=== PATIENT | female | born 1990 | race Asian ===

== ENCOUNTER 2017-07-25 10:37 | Inpatient (IN) | payer OTHER ==
[~2017-07-25] VITALS: Ht 170.2 cm; Wt 56.2 kg
[~2017-07-25 10:37] MED LIST: ZOFR4TAB3 SL
[2017-07-25 11:32] VITALS: BP 116/72; PULSE 91; RESP 16; TEMP 97.7; O2SAT 95
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
[2017-07-25] MEDS ORDERED: SODIUM CHLOR 0.9% 1000 ML INJ 1,000 ML IV SCH ×2 (14:11→18:45)
[2017-07-25] MEDS ORDERED: IBUPROFEN 600 MG TAB PO ONE (14:15)
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
[2017-07-25 14:32] VITALS: RESP 18; O2SAT 100
[2017-07-25 14:33] VITALS: BP 118/73; PULSE 83; RESP 18; O2SAT 100
[2017-07-25 14:48] LABS: AUTOMATED NEUTROPHIL # 8.2 TH/MM3 (1.8-7.7); BASOPHIL % 0.3 % (0.0-2.0); EOSINOPHIL # 0.1 TH/MM3 (0-0.4); EOSINOPHIL % 0.7 % (0.0-4.0); HEMATOCRIT 40.1 % (35.0-46.0); HEMO FLAGS DIFF FINAL; LYMPH % 13.6 % (9.0-44.0); LYMPHOCYTE # 1.4 TH/MM3 (1.0-4.8); MEAN CELL VOLUME 87.1 FL (80.0-100.0); MEAN CORPUSCULAR HEMOGLOBIN 29.1 PG (27.0-34.0); MEAN CORPUSCULAR HGB CONC 33.4 % (32.0-36.0); MONO % 4.2 % (0.0-8.0); NEUT % 81.2 % (16.0-70.0); PLATELET COUNT 224 TH/MM3 (150-450); WHITE BLOOD COUNT 10.1 TH/MM3 (4.0-11.0)
[2017-07-25 15:07] LABS: APTT (PATIENT) 27.1 SEC (24.3-30.1); PROTHROMBIN TIME - PATIENT 11.3 SEC (9.8-11.6)
[2017-07-25 15:17] LABS: BICARBONATE 28.8 MEQ/L (21.0-32.0); POTASSIUM 3.8 MEQ/L (3.5-5.1)
[2017-07-25] MEDS ORDERED: IOHEXOL 350 MG/ML 10 ML VIAL (for RAD DIAG) IVCONTRAST ONE (16:32)
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
[2017-07-25 18:45] VITALS: BP 108/58; PULSE 56; RESP 16; O2SAT 99
[2017-07-25] MEDS ORDERED: SODIUM CHLORIDE 0.9% FLUSH 10 ML FLUSH IV FLUSH PRN (18:45)
[2017-07-25] MEDS ORDERED: LACTULOSE SYRUP 20 GM/30 ML CUP PO PRN (18:45)
[2017-07-25] MEDS ORDERED: ACETAMINOPHEN/HYDROcodone 325 MG/5 MG TAB PO PRN ×2 (18:45)
[2017-07-25] MEDS ORDERED: ENALAPRILAT 1.25 MG/ML VIAL IV PUSH PRN (18:45)
[2017-07-25] MEDS ORDERED: ONDANSETRON HCL 4 MG/2 ML VIAL IV PUSH PRN ×2 (18:45→19:00)
[2017-07-25] MEDS ORDERED: MORPHINE SULFATE 4 MG/ML INJ IV PUSH PRN (18:45)
[2017-07-25] MEDS ORDERED: KETOROLAC TROMETHAMINE 30 MG/ML (IVP) VIAL IVP PRN (19:00)
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
--- NOTE | 2017-07-25 20:23 | RADRPT ---
EXAM DATE/TIME: 07/25/2017 19:58 [facility] COMPARISON: CT THORAX W CONTRAST, July 25, 2017, 16:24. CHEST SINGLE AP, July 25, 2017, 13:23. INDICATIONS : Follow-up pneumothorax. MEDICAL HISTORY : None. SURGICAL HISTORY : None. ENCOUNTER: Subsequent ACUITY: 1 day PAIN SCORE: 10/10 LOCATION: Bilateral chest FINDINGS: A single view of the chest demonstrates the lungs to be symmetrically aerated without evidence of mas s, infiltrate or effusion. The cardiomediastinal contours are unremarkable. Osseous structures agai n reveal a left mid clavicle displaced fracture.. 3.6 cm left apical pneumothorax is appreciated with out tension CONCLUSION: Stable chest. Left clavicle fracture. Stable left apical pneumothorax without tension Turner Bocanegra MD on July 25, 2017 at 20:19 Board Certified Radiologist. This report was verified electronically.
[2017-07-25] MEDS: ACETAMINOPHEN 1000 MG/100 ML 100 ML IV SCH (23:50)
[2017-07-25] MEDS: SODIUM CHLOR 0.9% 1000 ML INJ 1,000 ML IV SCH (23:54)
[2017-07-25] MEDS: DOCUSATE SODIUM 50 MG/SENNA 8.6 MG TAB PO SCH (23:54)
[2017-07-25] MEDS: FAMOTIDINE 20 MG TAB PO SCH (23:54)
[2017-07-25] MEDS: METHOCARBAMOL 500 MG TAB PO SCH (23:55)
[2017-07-26] VITALS (11 sets, daily range): BP systolic 95–123; BP diastolic 50–72; PULSE 61–86; RESP 16–25; TEMP 96.6–98.8; O2SAT 97–99
[2017-07-26] MEDS: ACETAMINOPHEN 1000 MG/100 ML 100 ML IV SCH ×3 (02:00→12:52)
[2017-07-26] MEDS: SODIUM CHLOR 0.9% 1000 ML INJ 1,000 ML IV SCH ×2 (06:00→15:43)
[2017-07-26] MEDS: METHOCARBAMOL 500 MG TAB PO SCH ×3 (06:01→21:20)
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
--- NOTE | 2017-07-26 06:48 | RADRPT ---
EXAM DATE/TIME: 07/26/2017 06:13 [facility] COMPARISON: CHEST SINGLE AP, July 25, 2017, 19:58. INDICATIONS : Follow-up pneumothorax. MEDICAL HISTORY : None. SURGICAL HISTORY : None. ENCOUNTER: Subsequent ACUITY: 2 days PAIN SCORE: 10/10 LOCATION: Bilateral chest FINDINGS: The cardiac silhouette is normal in transverse diameter. The left pneumothorax is increasing in size from 3.6 separation at the apex to 4.2 There are no signs of tension. Left clavicle fracture is prese nt. CONCLUSION: 1. Enlarging left pneumothorax without tension Haider Kebede MD on July 26, 2017 at 6:45 Board Certified Radiologist. This report was verified electronically.
[2017-07-26] MEDS: DOCUSATE SODIUM 50 MG/SENNA 8.6 MG TAB PO SCH ×2 (07:49→21:00)
[2017-07-26] MEDS: FAMOTIDINE 20 MG TAB PO SCH ×2 (07:49→21:18)
[2017-07-26] MEDS: BACITRACIN TOP OINT 15 GM TUBE TOP SCH ×2 (08:08→21:20)
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
[2017-07-26] MEDS ORDERED: MILKSUS PO (19:57)
[2017-07-26] MEDS ORDERED: SENN1TAB PO (19:57)
[2017-07-26] MEDS ORDERED: INSULIN HUMAN REGULAR 1,000 UNITS/10 ML VIAL SQ PRN (22:30)
[2017-07-26] MEDS ORDERED: SODIUM CHLORID 0.9% 500 ML IV PRN (22:30)
[2017-07-26] MEDS ORDERED: CHLORHEXIDINE GLUCONATE 2 % 1 PACK (2 CLOTHS) TOPICAL PRN (22:30)
[2017-07-26] MEDS ORDERED: POVIDONE IODINE 5% (ANTISEPSIS KIT) 4 APPLICATIONS EACH NARE PRN (22:30)
[2017-07-26] MEDS ORDERED: LACTATED RINGER'S 1000 ML IV PRN (22:30)
[2017-07-26] MEDS ORDERED: METOPROLOL TARTRATE 25 MG TAB PO PRN (22:30)
[2017-07-27 00:40] VITALS: BP 125/69; PULSE 70; RESP 16; TEMP 98; O2SAT 98
[2017-07-27 04:45] VITALS: BP 106/65; PULSE 66; RESP 16; TEMP 96.8; O2SAT 98
[2017-07-27 05:50] LABS: AUTOMATED NEUTROPHIL # 2.4 TH/MM3 (1.8-7.7); BASOPHIL % 0.8 % (0.0-2.0); EOSINOPHIL # 0.3 TH/MM3 (0-0.4); EOSINOPHIL % 6.8 % (0.0-4.0); HEMATOCRIT 34.8 % (35.0-46.0); HEMO FLAGS DIFF FINAL; LYMPH % 36.5 % (9.0-44.0); LYMPHOCYTE # 1.8 TH/MM3 (1.0-4.8); MEAN CELL VOLUME 86.5 FL (80.0-100.0); MEAN CORPUSCULAR HEMOGLOBIN 29.1 PG (27.0-34.0); MEAN CORPUSCULAR HGB CONC 33.6 % (32.0-36.0); MONO % 6.3 % (0.0-8.0); NEUT % 49.6 % (16.0-70.0); PLATELET COUNT 202 TH/MM3 (150-450); RED BLOOD COUNT 4.03 MIL/MM3 (4.00-5.30); WHITE BLOOD COUNT 4.9 TH/MM3 (4.0-11.0)
[2017-07-27 06:14] LABS: ALT (GPT) 17 U/L (10-53); ANION GAP 6 MEQ/L (5-15); AST (GOT) 18 U/L (15-37); BICARBONATE 27.4 MEQ/L (21.0-32.0); BLOOD UREA NITROGEN 7 MG/DL (7-18); CHLORIDE 108 MEQ/L (98-107); GLOMERULAR FILTRATION RATE 110 ML/MIN (>89); POTASSIUM 3.8 MEQ/L (3.5-5.1); SODIUM (NA) 141 MEQ/L (136-145)
[2017-07-27 06:16] LABS: ALKALINE PHOSPHATASE 67 U/L (45-117); TOTAL BILIRUBIN ADULT 0.3 MG/DL (0.2-1.0)
[2017-07-27] MEDS: METHOCARBAMOL 500 MG TAB PO SCH ×3 (06:20→23:28)
[2017-07-27 08:00] VITALS: BP 98/56; PULSE 59; RESP 19; TEMP 97; O2SAT 94
--- NOTE | 2017-07-27 08:12 | RADRPT ---
EXAM DATE/TIME: 07/27/2017 08:43 [facility] COMPARISON: CHEST PA & LAT, July 26, 2017, 6:13. CHEST SINGLE AP, July 25, 2017, 19:58. INDICATIONS : Rule out pneumothorax. MEDICAL HISTORY : None. SURGICAL HISTORY : None. ENCOUNTER: Subsequent ACUITY: 2 days PAIN SCORE: 0/10 LOCATION: Bilateral chest FINDINGS: A single view of the chest demonstrates persistent left apical pneumothorax. This actually appears sm aller when compared to prior exams previously measuring 3.6-4.0 cm in depth now measuring 2.7 cm. No findings of tension. Heart and mediastinal structures remain midline and normal in size. Right lung i s clear. Fracture through the mid diaphysis of the left clavicle with the fracture fragments in bayon et apposition. Osseous structures are otherwise intact. Mild dextroscoliosis of the dorsal spine. CONCLUSION: 1. Persistent left apical pneumothorax is actually smaller when compared to prior. No pneumothorax. 2. Stable left clavicular fracture as above. Dimas Klein MD on July 27, 2017 at 8:07 Board Certified Radiologist. This report was verified electronically.
[2017-07-27] MEDS: DOCUSATE SODIUM 50 MG/SENNA 8.6 MG TAB PO SCH ×2 (09:00→21:00)
[2017-07-27] MEDS: LACTULOSE SYRUP 20 GM/30 ML CUP PO SCH (09:00)
[2017-07-27] MEDS ORDERED: INFLUENZA VIRUS VACCINE (QUADRIVALENT) 0.5 ML SYR IM ONE (10:00)
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
[2017-07-27] MEDS: FAMOTIDINE 20 MG TAB PO SCH ×2 (10:46→23:16)
[2017-07-27] MEDS: BACITRACIN TOP OINT 15 GM TUBE TOP SCH ×2 (10:49→23:28)
[2017-07-27] MEDS: ACETAMINOPHEN/HYDROcodone 325 MG/5 MG TAB PO PRN ×2 (11:08→23:25)
[2017-07-27 12:00] VITALS: BP 108/57; PULSE 68; RESP 18; TEMP 96.7; O2SAT 96
[2017-07-27 15:40] VITALS: BP 107/58; PULSE 57; RESP 16; TEMP 98.1; O2SAT 100
[2017-07-27] MEDS ORDERED: GENTAMICIN SULFATE 80 MG/2 ML VIAL ONE (15:45)
--- NOTE | 2017-07-27 16:01 | PD.ORT.PN ---
Subjective Subjective Remarks Patient reports pain relatively well controlled. Would like to proceed with surgery for her left clavicle Objective Vitals Vital Signs Date Time Temp Pulse Resp B/P (MAP) Pulse Ox O2 Delivery O2 Flow Rate FiO2 07/27/17 08:00 97.0 59 19 98/56 (70) 94 07/27/17 04:45 96.8 66 16 106/65 (79) 98 07/27/17 00:40 98.0 70 16 125/69 (87) 98 07/26/17 20:22 99 21 07/26/17 20:05 97.7 69 19 119/72 (88) 98 07/26/17 18:15 Room Air 07/26/17 17:30 96.6 71 16 120/60 (80) 98 I/O 07/26/17 07/26/17 07/26/17 07/27/17 07/27/17 07/27/17 06:59 14:59 22:59 06:59 14:59 22:59 Intake Total 714 ml 1980 ml 0 ml Balance 714 ml 1980 ml 0 ml Intake Oral 980 ml 0 ml IV Total 714 ml 1000 ml # Voids 1 6 1 # Bowel Movements 0 0 Result Diagram: 07/27/17 0510 07/27/17 0510 Imaging Last 24 hours Impressions Chest X-Ray 07/27/17 0600 Signed Impressions: Service Date/Time: Thursday, July 27, 2017 08:43 - CONCLUSION: 1. Persistent left apical pneumothorax is actually smaller when compared to prior. No pneumothorax. 2. Stable left clavicular fracture as above. Dimas Klein MD Objective Remarks Awake, alert, NAD LUE: TTP and swelling about clavicle. NVI distally Assessment & Plan Assessment and Plan Closed left midshaft clavicle fracture, with significant displacement 1. Discussed with the patient her options of management to include non-op versus operative treatment. I explained to the patient that with non-op management she has a higher chance of nonunion which could result in pain, mild weakness, and possible deformity (bump above her clavicle), however, it is an option and she would be treated in a sling and NWB for several weeks to a couple of months. Operative management would be in the form of ORIF left clavicle and would result in a greater chance of healing and less deformity but does subject her to the risks of surgery. These risks include but are not limited to: anesthesia, infection, hardware malposition or failure, nonunion or malunion, painful and prominent hardware, possible damage to neurovascular structures, possible need for further surgery and other unforeseen complications. Should she elect to have surgery, she likely would need a pigtail catheter given her pneumothorax but this would be at the discretion of the trauma team. I did explain that the patient can take some time to think about it and her clavicle could be fixed at a later time, however, I have recommended if she would like have surgery she choose to do so in the first week or two at the latest. Patient has decided she would like to proceed with surgery. 2. NPO 3. Plan for ORIF left clavicle today Aleisha Delacruz MD Jul 27, 2017 16:01
--- NOTE | 2017-07-27 17:57 | RADRPT ---
EXAM DATE/TIME: 07/27/2017 17:36 [facility] COMPARISON: CLAVICLE LEFT, July 25, 2017, 12:57. INDICATIONS : Left clavicle ORIF. MEDICAL HISTORY : None. SURGICAL HISTORY : None. ENCOUNTER: Initial ACUITY: 1 day PAIN SCORE: Non-responsive. LOCATION: Left clavicle. FINDINGS: Plate with screws is seen bridging the fracture the left clavicle. Alignment anatomic. CONCLUSION: Anatomic alignment. Ck Ortega MD FACR on July 27, 2017 at 17:55 Board Certified Radiologist. This report was verified electronically.
--- NOTE | 2017-07-27 17:59 | HHI.PR ---
cc: Aleisha Delacruz MD Immediate Post Op Note Procedure Date: Jul 27, 2017 Pre Op Diagnosis: Closed left displaced midshaft clavicle fracture Post Op Diagnosis: same Surgeon: Aleisha Delacruz Floor Representative(s): Siddhartha Pope Procedure: ORIF left clavicle fracture Complications: none Specimen(s) removed: none Estimated blood loss: minimal Anesthesia: General Drains: None Patient to: PACU Patient Condition: Good Implant/Devices: SEE IMPLANT LOG (if applicable) Aleisha Delacruz MD Jul 27, 2017 17:59
[2017-07-27] MEDS ORDERED: SODIUM CHLORIDE 0.9% FLUSH 10 ML FLUSH IV FLUSH PRN (18:00)
--- NOTE | 2017-07-27 18:40 | RADRPT ---
EXAM DATE/TIME: 07/27/2017 18:16 [facility] COMPARISON: CHEST SINGLE AP, July 27, 2017, 8:43. INDICATIONS : Left side chest tube placement. MEDICAL HISTORY : None. SURGICAL HISTORY : Left clavicle. ENCOUNTER: Initial ACUITY: 1 day PAIN SCORE: Non-responsive. LOCATION: Left chest FINDINGS: A single view of the chest demonstrates the lungs to be symmetrically aerated without evidence of mas s, infiltrate or effusion. The cardiomediastinal contours are unremarkable. Osseous structures are intact. Small bore left chest tube is noted in place at the base. The left apical pneumothorax is dim inished in size from 2.7 now 1.6 cm in maximal diameter CONCLUSION: Placement left chest tube. Decreased width of the left apical pneumothorax Turner Bocanegra MD on July 27, 2017 at 18:37 Board Certified Radiologist. This report was verified electronically.
[2017-07-27] MEDS ORDERED: *diphenhydrAMINE HCL 50 MG/ML VIAL PERIprocedural Use ONLY ONE (18:52)
[2017-07-27 20:05] VITALS: BP 112/69; PULSE 55; RESP 12; TEMP 96.9; O2SAT 100
[2017-07-27] MEDS: MORPHINE SULFATE 4 MG/ML INJ IV PUSH PRN (20:21)
[2017-07-27] MEDS: SODIUM CHLORIDE 0.9% FLUSH 10 ML FLUSH IV FLUSH SCH (20:22)
[2017-07-27] MEDS: MAGNESIUM HYDROXIDE SUSP 30 ML CUP PO SCH (21:00)
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
[2017-07-28] VITALS (10 sets, daily range): BP systolic 99–122; BP diastolic 48–64; PULSE 54–98; RESP 16–19; TEMP 97–98.4; O2SAT 96–99
[2017-07-28] MEDS: MORPHINE SULFATE 4 MG/ML INJ IV PUSH PRN (01:52)
[2017-07-28 02:17] LABS: BACTERIA, URINE OCC /hpf; BLOOD, URINE NEG (NEG); COMMENT (UR) CULT NOT INDICATED; CULTURE IF INDICATED CULT NOT INDICATED; GLUCOSE,URINE NEG (NEG); KETONE, URINE 10 mg/dL (NEG); MUCUS URINE FEW /lpf (OCC); NITRITE,URINE NEG (NEG); PH, URINE 5.5 (5.0-8.5); SQUAMOUS EPITHELIAL CELL URINE <1 /hpf (0-5); URINE COLOR YELLOW (YELLW/STRAW)
[2017-07-28] MEDS: ACETAMINOPHEN/HYDROcodone 325 MG/5 MG TAB PO PRN ×3 (06:29→20:03)
[2017-07-28] MEDS: METHOCARBAMOL 500 MG TAB PO SCH ×3 (06:31→22:57)
--- NOTE | 2017-07-28 06:33 | RADRPT ---
EXAM DATE/TIME: 07/28/2017 06:13 [facility] COMPARISON: CHEST SINGLE AP, July 27, 2017, 18:16. INDICATIONS : Evaluate for left pneumothorax MEDICAL HISTORY : None. SURGICAL HISTORY : ORIF left clavicle ENCOUNTER: Subsequent ACUITY: 3 days PAIN SCORE: 5/10 LOCATION: Left chest FINDINGS: The cardiac silhouette is normal in transverse diameter. There is continued left apical pneumothorax. There are no signs of tension. The lungs are free of acute parenchymal opacity. No effusions are enoc ntified. Left chest tube is present. CONCLUSION: 1. Stable left apical pneumothorax Haider Kebede MD on July 28, 2017 at 6:30 Board Certified Radiologist. This report was verified electronically.
--- NOTE | 2017-07-28 08:07 | PD.ORT.PN ---
Subjective Subjective Remarks Patient reports pain relatively well controlled. Denies any shortness of breath , chest pain or abdominal pain. Objective Vitals Vital Signs Date Time Temp Pulse Resp B/P (MAP) Pulse Ox O2 Delivery O2 Flow Rate FiO2 07/28/17 04:20 97.4 55 16 99/50 (66) 97 07/28/17 00:55 98.4 71 16 104/54 (71) 97 07/28/17 00:19 16 07/27/17 20:05 96.9 55 12 112/69 (83) 100 07/27/17 20:00 Nasal Cannula 2.00 07/27/17 19:40 53 14 116/68 (84) 100 Nasal Cannula 2 07/27/17 19:30 52 14 106/66 (79) 100 Nasal Cannula 2 07/27/17 19:15 51 14 130/71 (90) 100 Nasal Cannula 2 07/27/17 19:00 61 14 121/73 (89) 99 Nasal Cannula 2 07/27/17 18:45 59 14 110/57 (74) 98 Nasal Cannula 2 07/27/17 18:30 62 14 129/59 (82) 99 Nasal Cannula 2 07/27/17 18:19 96.8 76 14 115/77 (90) 100 Nasal Cannula 4 07/27/17 15:40 98.1 57 16 107/58 (74) 100 07/27/17 12:00 96.7 68 18 108/57 (74) 96 I/O 07/27/17 07/27/17 07/27/17 07/28/17 07/28/17 07/28/17 07:00 15:00 23:00 07:00 15:00 23:00 Intake Total 0 ml 620 ml 240 ml Output Total 20 ml 38 ml Balance 0 ml 600 ml 202 ml Intake Oral 0 ml 120 ml 240 ml Other 500 ml Output Chest Tube Drainage Total 38 ml Estimated Blood Loss 20 ml # Voids 1 0 1 # Bowel Movements 0 0 0 Result Diagram: 07/27/1750907/27/17 05 Imaging Last 24 hours Impressions Chest X-Ray 07/27/17 06 Signed Impressions: Service Date/Time: Thursday, July 27, 2017 08:43 - CONCLUSION: 1. Persistent left apical pneumothorax is actually smaller when compared to prior. No pneumothorax. 2. Stable left clavicular fracture as above. Dimas Klein MD Objective Remarks Awake, alert, NAD LUE: Dressing in place over her clavicle without drainage. NVI distally Assessment & Plan Assessment and Plan Closed left midshaft clavicle fracture, postop day 1 from ORIF left clavicle 1. Nonweightbearing left upper extremity. I discussed with the patient that she should be in a sling when she is upright and out of bed. She can be out of sling when she is supine in bed. 2. PT for mobilization per primary team 3. Okay to start dressing changes later today or postop day 2. 4. Okay for discharge from orthopedic standpoint. Patient should follow-up in clinic with Dr. Delacruz in 2 weeks. Aleisha Delacruz MD Jul 28, 2017 08:07
[2017-07-28] MEDS: LACTULOSE SYRUP 20 GM/30 ML CUP PO SCH (09:00)
[2017-07-28] MEDS: DOCUSATE SODIUM 50 MG/SENNA 8.6 MG TAB PO SCH ×2 (09:00→20:03)
[2017-07-28] MEDS: BACITRACIN TOP OINT 15 GM TUBE TOP SCH ×2 (09:00→20:03)
[2017-07-28] MEDS: FAMOTIDINE 20 MG TAB PO SCH ×2 (09:09→20:03)
[2017-07-28] MEDS: SODIUM CHLORIDE 0.9% FLUSH 10 ML FLUSH IV FLUSH SCH ×2 (09:09→20:03)
[2017-07-28] MEDS ORDERED: INFLUENZA VIRUS VACCINE (QUADRIVALENT) 0.5 ML SYR IM ONE (10:00)
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
[2017-07-28] MEDS: MAGNESIUM HYDROXIDE SUSP 30 ML CUP PO SCH (20:03)
[2017-07-29] VITALS (7 sets, daily range): BP systolic 98–123; BP diastolic 52–59; PULSE 50–65; RESP 16–17; TEMP 95.5–98; O2SAT 96–99
[2017-07-29] MEDS: ACETAMINOPHEN/HYDROcodone 325 MG/5 MG TAB PO PRN ×3 (00:02→21:54)
[2017-07-29 04:25] LABS: ANION GAP 3 MEQ/L (5-15); AST (GOT) 8 U/L (15-37); BASOPHIL % 0.5 % (0.0-2.0); BICARBONATE 30.9 MEQ/L (21.0-32.0); BLOOD UREA NITROGEN 10 MG/DL (7-18); CHLORIDE 107 MEQ/L (98-107); EOSINOPHIL # 0.1 TH/MM3 (0-0.4); GLOMERULAR FILTRATION RATE 103 ML/MIN (>89); HEMATOCRIT 32.9 % (35.0-46.0); HEMO FLAGS DIFF FINAL; LYMPH % 37.1 % (9.0-44.0); LYMPHOCYTE # 2.1 TH/MM3 (1.0-4.8); MEAN CELL VOLUME 86.3 FL (80.0-100.0); MEAN CORPUSCULAR HEMOGLOBIN 29.4 PG (27.0-34.0); MONO % 6.6 % (0.0-8.0); NEUT % 53.8 % (16.0-70.0); PLATELET COUNT 191 TH/MM3 (150-450); POTASSIUM 4.1 MEQ/L (3.5-5.1); RED BLOOD COUNT 3.81 MIL/MM3 (4.00-5.30); RED CELL DISTRIBUTION WIDTH 13.8 % (11.6-17.2); SODIUM (NA) 141 MEQ/L (136-145); WHITE BLOOD COUNT 5.6 TH/MM3 (4.0-11.0)
[2017-07-29 04:27] LABS: ALKALINE PHOSPHATASE 58 U/L (45-117); ALT (GPT) 12 U/L (10-53); TOTAL BILIRUBIN ADULT 0.4 MG/DL (0.2-1.0)
[2017-07-29] MEDS: METHOCARBAMOL 500 MG TAB PO SCH ×3 (05:51→21:54)
--- NOTE | 2017-07-29 06:30 | RADRPT ---
EXAM DATE/TIME: 07/29/2017 06:32 [facility] COMPARISON: CHEST SINGLE AP, July 28, 2017, 6:13. INDICATIONS : Follow up trauma. MEDICAL HISTORY : None. SURGICAL HISTORY : ORIF left clavicle ENCOUNTER: Subsequent ACUITY: 4 - 6 days PAIN SCORE: 0/10 LOCATION: Bilateral chest FINDINGS: A single view of the chest demonstrates the lungs to be symmetrically aerated without evidence of mas s, infiltrate or effusion. Left-sided chest tube stable position. Stable left apical pneumothorax. T he cardiomediastinal contours are unremarkable. Osseous structures are intact. Plate and screws murali g left clavicle. CONCLUSION: 1. Stable left apical pneumothorax. Charan Farrell MD on July 29, 2017 at 6:28 Board Certified Radiologist. This report was verified electronically.
[2017-07-29] MEDS: DOCUSATE SODIUM 50 MG/SENNA 8.6 MG TAB PO SCH ×2 (07:37→20:02)
[2017-07-29] MEDS: FAMOTIDINE 20 MG TAB PO SCH ×2 (07:37→20:02)
[2017-07-29] MEDS: SODIUM CHLORIDE 0.9% FLUSH 10 ML FLUSH IV FLUSH SCH ×2 (07:40→20:02)
[2017-07-29] MEDS: LACTULOSE SYRUP 20 GM/30 ML CUP PO SCH (07:41)
[2017-07-29] MEDS: BACITRACIN TOP OINT 15 GM TUBE TOP SCH ×2 (07:41→20:02)
[2017-07-29] MEDS ORDERED: BISACODYL 10 MG SUPP RECTAL ONE (10:00)
[2017-07-29] MEDS ORDERED: BISACODYL EC 5 MG TABEC PO ONE (10:00)
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
[2017-07-29] MEDS: MAGNESIUM HYDROXIDE SUSP 30 ML CUP PO SCH (11:20)
--- NOTE | 2017-07-29 12:53 | RADRPT ---
EXAM DATE/TIME: 07/29/2017 12:54 [facility] COMPARISON: CHEST SINGLE AP, July 29, 2017, 6:32. INDICATIONS : Evaluate to remove chest tube. MEDICAL HISTORY : None. SURGICAL HISTORY : ORIF Left clavicle ENCOUNTER: Subsequent ACUITY: 1 day PAIN SCORE: 0/10 LOCATION: Bilateral chest FINDINGS: A small caliber left chest tube is present without significant pneumothorax. Previous plate and screw fixation left clavicle. Right lung is clear. CONCLUSION: 1. Small caliber left chest tube without pneumothorax. Minimal basilar atelectasis. Kain Cordova MD on July 29, 2017 at 12:50 Board Certified Radiologist. This report was verified electronically.
[2017-07-29] MEDS ORDERED: HYDR-3516 PO (14:17)
--- NOTE | 2017-07-29 17:27 | RADRPT ---
EXAM DATE/TIME: 07/29/2017 17:40 [facility] COMPARISON: CHEST SINGLE AP, July 29, 2017, 12:54. INDICATIONS : Chest tube removal. MEDICAL HISTORY : None. SURGICAL HISTORY : ORIF left clavicle. ENCOUNTER: Subsequent ACUITY: 1 day PAIN SCORE: 0/10 LOCATION: Bilateral chest FINDINGS: A single portable frontal view of the chest shows interval removal of the subpulmonic chest tube on t he left. A tiny apical pneumothorax is now seen. The lungs are clear. Heart is normal in size. No eff usions. Left clavicular orthopedic plate. CONCLUSION: Tiny apical pneumothorax following left chest tube removal. Harvey Stauffer Jr., MD on July 29, 2017 at 17:23 Board Certified Radiologist. This report was verified electronically.
[2017-07-30] VITALS: BP 113/60; PULSE 78; RESP 18; TEMP 97.7; O2SAT 98
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
[2017-07-30] MEDS: METHOCARBAMOL 500 MG TAB PO SCH ×2 (06:24→14:11)
[2017-07-30 08:00] VITALS: BP 104/60; PULSE 55; RESP 16; TEMP 96.6; O2SAT 97
[2017-07-30] MEDS: FAMOTIDINE 20 MG TAB PO SCH (08:53)
[2017-07-30] MEDS: SODIUM CHLORIDE 0.9% FLUSH 10 ML FLUSH IV FLUSH SCH (08:56)
[2017-07-30] MEDS: BACITRACIN TOP OINT 15 GM TUBE TOP SCH (08:56)
[2017-07-30] MEDS: DOCUSATE SODIUM 50 MG/SENNA 8.6 MG TAB PO SCH (08:56)
[2017-07-30] MEDS: LACTULOSE SYRUP 20 GM/30 ML CUP PO SCH (08:56)
[2017-07-30 10:31] VITALS: O2SAT 97
[2017-07-30 12:00] VITALS: BP 98/55; PULSE 54; RESP 17; TEMP 97.6; O2SAT 99
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
[2017-07-30] MEDS: ACETAMINOPHEN/HYDROcodone 325 MG/5 MG TAB PO PRN (16:13)
== END 2017-07-30 16:17 | disposition home or self-care (01) | DRG 516 ==
LOC: NEDAMB 10:37 → NEDA 15:12 → NEDH 19:54 → N03A 22:33 → N06B 07-26 18:07
PROVIDERS: ADMIT Surgery; ATTEND Surgery
PROC: 0PSB04Z Reposition Left Clavicle with Internal Fixation Device, Open Approach (ICD-10-PCS; principal; 2017-07-27 16:17)
PROC: 0W9B30Z Drainage of Left Pleural Cavity with Drainage Device, Percutaneous Approach (ICD-10-PCS; 2017-07-27 16:17)
DX: S42.022A Displaced fracture of shaft of left clavicle, initial encounter for closed fracture (principal); S27.0XXA Traumatic pneumothorax, initial encounter; M54.2 Cervicalgia; V43.52XA Car driver injured in collision with other type car in traffic accident, initial encounter; Z23 Encounter for immunization; V49.49XA Driver injured in collision with other motor vehicles in traffic accident, initial encounter
CPT/HCPCS: 70450; 71010; 71020; 71260; 72125; 73000; 73030; 74177; 76000; 80048; 80053; 81001; 84703; 85025; 85610; 85730; 87641; 90686; 94150; J0690; J1200; J1580; J2270; J2405; J7030; Q2038; Q9967